=== PATIENT | male | born 1980 | race Caucasian/White ===

== ENCOUNTER 2021-02-05 12:35 | Emergency (ER) | payer OTHER ==
[2021-02-05 14:33] LABS: BASOPHIL 0.7 % (0-2); EOSINOPHIL 0.9 % (0-5); HCT 37.2 % (42.0-52.0); HGB 12.4 g/dl (13.2-18.0); MCH 30.5 pg (25.0-31.0); MCHC 33.3 g/dL (32.0-36.0); MCV 91.4 fL (78.0-100.0); MONOCYTE 12.5 % (0-12); MPV 11.1 fL (6.0-9.5); NEUTROPHIL 42.4 % (41-80); NRBC 0; PLT 190 K/uL (150-400); RBC 4.07 M/uL (4.70-6.00); RDW 13.5 % (11.5-14.0); WBC 9.8 K/uL (4.0-10.5)
[2021-02-05 14:37] LABS: ALBUMIN 3.2 g/dL (3.4-5.0); BILIRUBIN NEGATIVE (NEGATIVE); BILIRUBIN - TOTAL 0.6 mg/dL (0.2-1.0); BLOOD NEGATIVE Ery/uL (NEGATIVE); BUN/CREAT RATIO (CALC) 9.5 RATIO; CLARITY CLEAR (CLEAR); COLOR YELLOW (YELLOW); CREATININE 0.95 mg/dL (0.67-1.17); GLOBULIN (CALCULATION) 4.5 g/dL; GLUCOSE (U) NORMAL (NORMAL); LEUKOCYTES NEGATIVE Leu/uL (NEGATIVE); NITRITE NEGATIVE (NEGATIVE); POTASSIUM 4.9 mmol/L (3.5-5.1); PROTEIN NEGATIVE (NEGATIVE); TOTAL PROTEIN 7.7 g/dL (6.4-8.2)
[2021-02-05 14:39] LABS: LYMPHOCYTE 43.1 % (15-48)
[2021-02-05 14:40] LABS: AMPHETAMINES POSITIVE (NEGATIVE); BARBITURATES NEGATIVE (NEGATIVE); ECSTASY (MDMA) NEGATIVE (NEGATIVE); MARIJUANA (THC) NEGATIVE (NEGATIVE); METHADONE NEGATIVE (NEGATIVE); OPIATES NEGATIVE (NEGATIVE); OXYCODONE NEGATIVE (NEGATIVE)
[2021-02-05 14:45] LABS: PRO-BNP 13 pg/mL (<125)
== END 2021-02-05 17:05 | disposition home or self-care (01) ==
LOC: FER 12:35
PROVIDERS: Emergency Medicine
DX: U07.1 COVID-19 (principal); F19.10 Other psychoactive substance abuse, uncomplicated; R22.43 Localized swelling, mass and lump, lower limb, bilateral; I10 Essential (primary) hypertension; F17.210 Nicotine dependence, cigarettes, uncomplicated
CPT/HCPCS: 36415; 36600; 71045; 71275; 80053; 80305; 81003; 82803; 83605; 83880; 84484; 85025; 85379; 87040; J2930; Q9967